=== PATIENT | female | born 1955 | race Caucasian/White ===

== ENCOUNTER 2016-10-22 11:23 | Emergency (ER) | payer BC, OTHER ==
[2016-10-22 11:54] VITALS: BP 139/81
--- NOTE | 2016-10-22 12:01 | UC ---
Cardiac HPI - HPI Summary HPI Summary: 61 year old female with history remote smoking c/o R upper back pain, that radiates around to front of chest x 2 days. States feels like lung infection. Denies any cough. No fever at this time. Feels "run down " and her husbands sister recently from unknown causes. Denies URI Sx. Right sided discomfort on the right side of the chest. Has had chest heaviness. Has had pneumonia 2 times and bronchitis in the past and it does not feel like that at this time. (+ ) diarrhea on and off. Stopped oxycodone 2-3 weeks ago (was on chronically for sciatica). No longer taking Cratom for pain relief. Denies any recent trauma to the right side. [ End ] - History of Current Complaint Chief Complaint: UCChestPain Stated Complaint: UPPER BACK & FRONT PAIN (RIB) Time Seen by Provider: 10/22/16 11:56 Onset/Duration: Sudden Onset Timing: Constant Initial Severity: Mild Current Severity: Moderate Aggravating: Exertion Alleviating: Rest Associated Signs & Symptoms: Positive: Chest Pain - Allergy/Home Medications Allergies/Adverse Reactions: Allergies Allergy/AdvReac Type Severity Reaction Status Date / Time No Known Allergies Allergy Verified 10/22/16 11:38 Home Medications: Home Medications Ibuprofen TAB* [Advil TAB*] 400 mg PO Q6H PRN 10/22/16 [History Confirmed ] PMH/Surg Hx/FS Hx/Imm Hx Previously Healthy: Yes Endocrine History Of: Reports: Dyslipidemia Denies: Diabetes Cardiovascular History Of: Denies: Cardiac Disorders, Hypertension, Atrial Fibrillation Respiratory History Of: Denies: COPD GI/ History Of: Denies: Gastroesophageal Reflux Neurological History Of: Denies: TIA Psychological History Of: Denies: Anxiety Cancer History Of: Denies: Lung Cancer, Breast Cancer Other History Of: Negative For: HIV - Surgical History Surgical History: Yes Surgery Procedure, Year, and Place: septorhinopasty. - Family History Known Family History: Positive: Cardiac Disease - grandfather with triple bypass - Social History Occupation: Employed Full-time Lives: With Family Alcohol Use: Occasionally Substance Use Type: None Smoking Status (MU): Former Smoker When Did the Patient Quit Smoking/Using Tobacco: 1981 - Immunization History Most Recent Influenza Vaccination: not this season Review of Systems Constitutional: Fatigue Skin: Negative Eyes: Negative ENT: Negative Respiratory: Shortness Of Breath Cardiovascular: Chest Pain Gastrointestinal: Negative Genitourinary: Negative Motor: Negative Neurovascular: Negative Musculoskeletal: Negative Neurological: Negative Psychological: Negative All Other Systems Reviewed And Are Negative: Yes Physical Exam Triage Information Reviewed: Yes Appearance: Well-Appearing, No Pain Distress, Well-Nourished Vital Signs: Initial Vital Signs Temp 99.1 F 10/22/16 11:39 Pulse 69 10/22/16 11:39 Resp 18 10/22/16 11:39 BP 139/81 10/22/16 11:39 Pulse Ox 100 10/22/16 11:39 Vital Signs Reviewed: Yes Eye Exam: Normal ENT Exam: Normal Dental Exam: Normal Neck exam: Normal Neck: Positive: 1 Respiratory Exam: Normal Cardiovascular Exam: Normal Musculoskeletal Exam: Normal Neurological Exam: Normal Psychological Exam: Normal Skin Exam: Normal Skin: Positive: Other - right scapulothoracic discomfort to palpation that is vague. also lateral flank tenderness to palpation . - Assessment/Plan Course Of Treatment: With history of smoking, family history of CAD and no previous cardiac work up with abnornal EKG with right sided chest pressure we advise ED work up to ensure no CAD/NV. Pt apprehensive about this but after long discussion willing to go to the [facility] for work up. She declined ambulance. - Differential Diagnoses - Chest Pain Differential Diagnosis/HQI/PQRI: Acute NV, ACS, Angina, Chest Wall, Lower Respiratory Infection, Pulmonary Embolism - Clinical Impression Provider Diagnoses: chest pain - Physician Notifications Discussed Patient Care With: Dr Hernandez at [facility] at 12:25pm and willing to accept patient Discharge - Discharge Plan Condition: Good Disposition: AGAINST MEDICAL ADVICE Referrals: Armando Doll MD [Primary Care Provider] - Additional Instructions: To go to ED by car (declined ambulance ) to [facility]
== END 2016-10-22 12:31 | disposition left against medical advice (07) ==
LOC: UCCORT 11:23
DX: R07.9 Chest pain, unspecified (principal); R06.02 Shortness of breath; M54.6 Pain in thoracic spine; R94.31 Abnormal electrocardiogram [ECG] [EKG]; E78.5 Hyperlipidemia, unspecified; M54.30 Sciatica, unspecified side; Z87.891 Personal history of nicotine dependence
CPT/HCPCS: 93005; 99212; G0463